=== PATIENT | female | born 1995 | race African-American/Black ===

== ENCOUNTER 2017-06-18 09:21 | Emergency (ER) | payer MEDICAID ==
[~2017-06-18] VITALS: Ht 162.6 cm; Wt 92.1 kg
[2017-06-18 09:25] VITALS: BP 132/82
[2017-06-18] MEDS ORDERED: NKM (09:28)
--- NOTE | 2017-06-18 09:43 | Emergency Room Report ---
History of Present Illness General Chief Complaint: Sore Throat Source: Patient, Friend Present Illness HPI 22-year-old female walks in with 2-3 days of left-sided sore throat, sinus congestion and rhinorrhea. Associated with dry cough. Nonsmoker no history of asthma. No history of fever or chills or body aches. Has been taking various [id number] medications including Motrin 400 mg without much improvement. Allergies: Coded Allergies: No Known Allergies (Unverified , 06/18/17) Patient History Past Medical History: none Past Surgical History: none Pertinent Family History: none Social History: Denies: smoking, alcohol use, drug use Last Menstrual Period: 05/26/17 Now: No Immunizations: UTD Reviewed Nursing Documentation: PMH: Agreed; PSxH: Agreed Nursing Documentation-PMH Past Medical History: No Stated History Review of Systems All Other Systems: negative except mentioned in HPI Physical Exam Vital Signs Date Time Temp Pulse Resp B/P (MAP) Pulse Ox O2 Delivery O2 Flow Rate FiO2 06/18/17 09:25 98.3 93 18 132/82 98 Room Air 98.2 Sp02 EP Interpretation: reviewed, normal General Appearance: normal inspection, well appearing, no apparent distress, alert, GCS 15, non-toxic Head: normocephalic, atraumatic Eyes: bilateral eye PERRL, bilateral eye EOMI ENT: normal ENT inspection, hearing grossly normal, normal pharynx, no angioedema, normal voice, TMs + canals normal, uvula midline, moist mucus membranes Neck: normal inspection, full range of motion, supple, thyroid normal, no meningismus, no bony tend Respiratory: normal inspection, lungs clear, normal breath sounds, no rhonchi, no respiratory distress, no retraction, no accessory muscle use, no wheezing, speaking full sentences Cardiovascular #1: regular rate, rhythm, no edema, no JVD, normal capillary refill Gastrointestinal: normal inspection, normal bowel sounds, non tender, soft, no mass, no peritonitis, non-distended, no guarding, no hernia, no pulsatile mass Genitourinary: no CVA tenderness Musculoskeletal: normal inspection, back normal, normal range of motion, no calf tenderness, pelvis stable, Antolin's Sign negative Neurologic: normal inspection, alert, oriented x3, responsive, hog slaughterer III-XII nml as tested, motor strength/tone normal, cerebellar normal, normal gait, speech normal Psychiatric: normal inspection, judgement/insight normal, mood/affect normal, no suicidal/homicidal ideation, no delusions Skin: normal inspection, normal color, no rash Lymphatic: normal inspection, no adenopathy Medical Decision Making Diagnostic Impression: Primary Impression: Sore throat ER Course VSS, afebrile With associated cough, rhinorrhea likely viral infection. No sign of bacterial infection in oropharynx, ears or lungs. Patient very well appearing, nonseptic appearing Advise Motrin as needed for likely viral pharyngitis, Flonase for nasal congestion and rhinorrhea. Close primary care follow-up ER course: Patient has remained stable during ED stay. Disposition: Patient is to be discharged to home. Prescriptions given are flonase, motrin Patient is instructed to follow up with their primary care doctor within 5 days. Strict return precautions discussed with patient such as fever, chills, worsening/severe pain, nausea, vomiting, which may indicate severe illness. Patient verbalizes understanding and agrees with plan. Please note that this Emergency Department Report was dictated using [employer] dna analyst technology software, occasionally this can lead to erroneous entry secondary to interpretation by the dictation equipment Last Vital Signs Date Time Temp Pulse Resp B/P (MAP) Pulse Ox O2 Delivery O2 Flow Rate FiO2 06/18/17 09:25 98.3 93 18 132/82 98 Room Air 98.3 Status: improved Disposition: HOME, SELF-CARE SHAJI VELAZQUEZ M.D. Jun 18, 2017 09:43
[2017-06-18] MEDS ORDERED: FLONASE ALLERG9.9 ML NS (09:44)
[2017-06-18] MEDS ORDERED: IBUPROFEN600 MG ORAL (09:44)
[2017-06-18 09:57] VITALS: BP 132/82
== END 2017-06-18 09:50 | disposition home or self-care (01) ==
LOC: EMR 09:38
DX: R07.0 Pain in throat (principal); R05 Cough
CPT/HCPCS: 99282

== ENCOUNTER 2017-07-13 14:34 | Emergency (ER) | payer MEDICAID ==
[~2017-07-13] VITALS: Ht 162.6 cm; Wt 96.2 kg
[~2017-07-13 14:34] MED LIST: FLONASE ALLERG9.9 ML NS; IBUPROFEN600 MG ORAL; NKM
[2017-07-13 15:03] VITALS: BP 125/81
[2017-07-13] MEDS ORDERED: ACYCLOVIR400 MG ORAL (15:19)
--- NOTE | 2017-07-13 15:20 | Emergency Room Report ---
History of Present Illness General Chief Complaint: General Complaint Source: Patient Present Illness HPI 22-year-old female patient presents to ER complaining of possible infection status post smoking a marijuana joint. Patient reports that she is concerned about having herpes on her lips after sharing it with a friend. Patient does not know the status of her friends health. Patient patient denies any lytic lesions or burning sensation of her left at this time. Patient denies acute complaints. Patient reports a history of cold sores in the past, has not had them for several years. Patient denies fever, chest pain, shortness of breath. Allergies: Coded Allergies: No Known Allergies (Unverified , 06/18/17) Patient History Past Medical History: see triage record Now: No Reviewed Nursing Documentation: PMH: Agreed; PSxH: Agreed Nursing Documentation-PMH Past Medical History: No Stated History Review of Systems All Other Systems: negative except mentioned in HPI Physical Exam Vital Signs Date Time Temp Pulse Resp B/P (MAP) Pulse Ox O2 Delivery O2 Flow Rate FiO2 07/13/17 14:53 98.4 99 17 125/81 97 Room Air 98.4 Sp02 EP Interpretation: reviewed, normal General Appearance: well appearing, no apparent distress, alert, GCS 15, non- toxic Head: normocephalic Eyes: bilateral eye normal inspection, bilateral eye PERRL ENT: hearing grossly normal, normal pharynx, no angioedema, normal voice, uvula midline, moist mucus membranes, other - no mouth sores, no vesicles, no lip lesions Neck: full range of motion Respiratory: lungs clear, normal breath sounds, no rhonchi, no respiratory distress, no accessory muscle use, no wheezing, speaking full sentences Cardiovascular #1: regular rate, rhythm, no edema Gastrointestinal: non tender, soft, no mass, non-distended, no guarding, no rebound Musculoskeletal: back normal, digits/nails normal, gait/station normal, normal range of motion, non-tender Neurologic: alert, oriented x3, responsive, motor strength/tone normal, sensory intact Psychiatric: mood/affect normal Skin: no rash Medical Decision Making PA Attestation Dr. Real is my supervising Physician whom patient management has been discussed with. Diagnostic Impression: Primary Impression: Encounter for generalized patient complaints ER Course Pt. presents to the ED c/o cold sore on mouth. Ddx considered but are not limited to atopic dermatitis, gingivostomatitis, pharyngitis. Vital signs: are WNL, pt. is afebrile ORDERS: None required at this time, the diagnosis is clinical. ER course: PE benign. No unroofed vesicles, no blisters. Explained to patient that herpes does not typically present within a few hours of exposure. Instructed patient that because she has had cold sores in the past she is at risk for having them again in the future, usually occur during times of increased stress or sickness. patient requesting medication. Provide Rx for acyclovir, instructed to patient not to take medication unless symptoms present. Informed patient that medication will only decrease length of symptoms, not cure disease. Instructed patient on [id number]-[id number] Abreva. patient rested comfortably, in no acute distress, nontoxic appearing, laughing and smiling. Don't smoke marijuana and drive. DISCHARGE: -Rx given for Acyclovir, 400mg TID x7 days. Patient may continue to use Abreva at home. At this time pt. is stable for d/c to home. Patient is resting comfortably in no acute distress, nontoxic appearing. Will provide printed patient care instructions, and any necessary prescriptions. Patient instructed to follow with primary care provider in 3-5 days for further treatment and referral as needed. Informed patient breakouts may occur during periods of stress or illness. Discuss future treatment options to prevent breakouts with patient; informed patient to discuss with primary care provider. Care plan and follow up instructions have been discussed with the patient prior to discharge. Patient reports understanding and agreement to treatment plan. Patient questions asked and answered. ER precautions given, patient instructed to return to ER immediately for any new or worsening of symptoms. - Please note that this Emergency Department Report was dictated using [employer] master technology software, occasionally this can lead to erroneous entry secondary to interpretation by the dictation equipment. Last Vital Signs Date Time Temp Pulse Resp B/P (MAP) Pulse Ox O2 Delivery O2 Flow Rate FiO2 07/13/17 14:53 98.4 99 17 125/81 97 Room Air 98.4 Disposition: HOME, SELF-CARE Condition: Stable Scripts Acyclovir* (ACYCLOVIR*) 400 Mg Tablet 400 MG ORAL THREE TIMES A DAY for 7 Days, #21 TAB Prov: Fuad Barr 07/13/17 Patient Instructions: Herpes Labialis Additional Instructions: Followup with primary care provider in 3 -5 days. Take medications as directed. only take if symptoms of cold sores began to present. [id number] Abreva for relief of symptoms. Do not smoke marijuana and drive. Patient questions asked and answered. ER precautions given, patient instructed to return to ER immediately for any new or worsening of symptoms. Fuad Barr July 13, 2017 15:20
[2017-07-13 15:25] VITALS: BP 125/81
== END 2017-07-13 15:25 | disposition home or self-care (01) ==
LOC: EMR 15:18
DX: Z04.8 Encounter for examination and observation for other specified reasons (principal); B00.1 Herpesviral vesicular dermatitis
CPT/HCPCS: 99283

== ENCOUNTER 2017-09-04 22:16 | Emergency (ER) | payer MEDICAID ==
[~2017-09-04] VITALS: Ht 165.1 cm; Wt 95.3 kg
[~2017-09-04 22:16] MED LIST changes: +ACYCLOVIR400 MG ORAL
[2017-09-04 22:30] VITALS: BP 141/80
[2017-09-04 23:26] LABS: APPEARANCE,URINE CLEAR; BILIRUBIN, URINE NEGATIVE (NEGATIVE); COLOR,URINE PALE YELLOW; GLUCOSE, URINE (UA) NEGATIVE (NEGATIVE); KETONES,URINE NEGATIVE (NEGATIVE); LEUKOCYTE ESTERASE ,URINE NEGATIVE (NEGATIVE); NITRITE,URINE NEGATIVE (NEGATIVE); PH,URINE 6 (4.5-8.0); PROTEIN,URINE NEGATIVE (NEGATIVE); UROBILINOGEN,URINE NORMAL MG/DL (0.0-1.0)
[2017-09-05 00:40] VITALS: BP 0/0
--- NOTE | 2017-09-05 23:17 | Emergency Room Report ---
History of Present Illness General Chief Complaint: Female Urogenital Problems Source: Patient Present Illness HPI Patient is a 22-year-old female who presented after increased vaginal bleeding. Patient reports having a prolonged menses. She denies being . Patient states that she been taking control pills. She reports having irregular periods in the past. Patient denies any dizziness or lightheadedness.She denies any severe pain. Allergies: Coded Allergies: No Known Allergies (Unverified , 06/18/17) Patient History Last Menstrual Period: 08/22/17 Now: No - denies sexual acitivty : 0 Reviewed Nursing Documentation: PMH: Agreed; PSxH: Agreed Nursing Documentation-PMH Past Medical History: No Stated History Review of Systems All Other Systems: negative except mentioned in HPI Physical Exam Vital Signs Date Time Temp Pulse Resp B/P (MAP) Pulse Ox O2 Delivery O2 Flow Rate FiO2 09/04/17 22:25 98.4 80 16 141/80 97 Room Air 98.4 General Appearance: well appearing, no apparent distress, alert, GCS 15 Head: normocephalic, atraumatic ENT: hearing grossly normal, normal voice Neck: full range of motion, supple Respiratory: lungs clear, normal breath sounds, no respiratory distress, speaking full sentences Gastrointestinal: normal inspection, non tender Musculoskeletal: normal inspection, back normal, digits/nails normal, gait/ station normal, no calf tenderness Neurologic: normal inspection, alert, oriented x3, normal gait Psychiatric: normal inspection, mood/affect normal Skin: normal inspection, no rash Medical Decision Making Diagnostic Impression: Primary Impression: Metrorrhagia ER Course Patient presented for vaginal bleeding. Differential diagnosis included wasn't limited to anemia, threatened , coagulopathy among others. The patient appears to have mild/moderate bleeding per history. The patient does not appear to require any labs or imaging studies at this time. 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 Urine test was negative.The patient is advised to follow up with primary care doctor in 1-2 days. Patient is advised to return if any worsening condition or if any changes in status that are concerning. This report is dictated with [employer] imaging assistant software which may occasionally lead to discrepancies related to use of this software. Last Vital Signs Date Time Temp Pulse Resp B/P (MAP) Pulse Ox O2 Delivery O2 Flow Rate FiO2 09/05/17 00:40 0/0 7/3/18 22:30 98.4 80 16 97 Room Air 98.4 Status: improved Disposition: HOME, SELF-CARE Condition: Stable Chad Park MD Sep 05, 2017 23:17
== END 2017-09-05 00:40 | disposition home or self-care (01) ==
LOC: EMR 22:47
DX: N92.1 Excessive and frequent menstruation with irregular cycle (principal)
CPT/HCPCS: 81003; 81025; 99282

== ENCOUNTER 2018-09-01 12:01 | Emergency (ER) | payer MEDICAID ==
[~2018-09-01] VITALS: Ht 165.1 cm; Wt 91.6 kg
[2018-09-01] MEDS ORDERED: LESSINA1 EACH PO (12:19)
[2018-09-01 12:27] VITALS: BP 136/86
--- NOTE | 2018-09-01 12:28 | NUR ---
ED Nurse Note: pt walked in to ED due to having period for 2 weeks. pt on control pills and skipped dose for 3 days before period starts. per pt, just small amount. denies any light headache or dizziness. AAO x4. respirations even and non-labored noted. will wait for the further order.
--- NOTE | 2018-09-01 12:36 | Emergency Room Report ---
History of Present Illness General Chief Complaint: Vaginal Source: Patient Present Illness HPI 23-year-old female with history of chronic vaginal bleeding here requesting of worsening vaginal bleeding at this month and requesting an abdominal ultrasound. Patient was previously here a year ago and was diagnosed with metrorrhagia and was told to follow-up with the primary care physician and have female hormones tested and have a pelvic ultrasound done. Patient reports that she never followed up with a primary care. She reports that every other month she has heavy bleeding with clotting. Complains of minimal fatigue and tiredness. Denies dizziness, headache, syncope, chest pain, shortness of breath , palpitation, abdominal pain, nausea vomiting. Patient reports that she has a family history of uterine fibroids. Denies painful urination, frequency. Patient is currently on oral contraceptives and currently on her menses. Allergies: Coded Allergies: No Known Allergies (Unverified , 06/18/17) Patient History Past Medical History: see triage record Past Surgical History: unable to obtain Pertinent Family History: none Last Menstrual Period: on period Now: No Immunizations: UTD Reviewed Nursing Documentation: PMH: Agreed; PSxH: Agreed Nursing Documentation-PMH Past Medical History: No Stated History Review of Systems All Other Systems: negative except mentioned in HPI Physical Exam Vital Signs Date Time Temp Pulse Resp B/P (MAP) Pulse Ox O2 Delivery O2 Flow Rate FiO2 09/01/18 12:10 98.2 93 17 136/86 (103) 98 Room Air Sp02 EP Interpretation: reviewed, normal General Appearance: normal inspection, well appearing, no apparent distress, alert, GCS 15 Head: normocephalic, atraumatic Eyes: bilateral eye normal inspection, bilateral eye PERRL ENT: normal ENT inspection, hearing grossly normal, normal pharynx Neck: normal inspection, full range of motion, supple Respiratory: normal inspection, chest non-tender, lungs clear Cardiovascular #1: normal inspection, normal peripheral pulses, regular rate, rhythm, no edema, normal capillary refill Gastrointestinal: normal inspection, non tender, soft Genitourinary: no CVA tenderness Musculoskeletal: normal inspection, back normal Neurologic: normal inspection, alert, oriented x3 Psychiatric: normal inspection, judgement/insight normal, memory normal Skin: no rash Lymphatic: normal inspection, no adenopathy Medical Decision Making PA Attestation All my diagnosis and treatment plans were reviewed ad discussed with my supervising physician Dr. Crum Diagnostic Impression: Primary Impression: Metrorrhagia ER Course 23-year-old female with history of chronic vaginal bleeding here requesting of worsening vaginal bleeding at this month and requesting an abdominal ultrasound. Patient was previously here a year ago and was diagnosed with menorrhagia and was told to follow-up with the primary care physician and have female hormones tested and have a pelvic ultrasound done. Patient reports that she never followed up with a primary care. She reports that every other month she has heavy bleeding with clotting. Complains of minimal fatigue and tiredness. Denies dizziness, headache, syncope, chest pain, shortness of breath , palpitation, abdominal pain, nausea vomiting. Patient reports that she has a family history of uterine fibroids. Denies painful urination, frequency. Patient is currently on oral contraceptives and currently on her menses. Ddx considered but are not limited to: UTI, metrorrhagia, uterine fibroids, ovarian cysts, iron deficiency anemia Vital signs: are WNL, pt. is afebrile H&PE are most consistent with: Metrorrhagia ORDERS: UA, urine preg, CBC, ibuprofen ED INTERVENTIONS: None required at this time. DISCHARGE: At this time pt. is stable for d/c to home. Will provide printed patient care instructions, and any necessary prescriptions. Care plan and follow up instructions have been discussed with the patient prior to discharge. Follow-up with the primary care provider for referral to [facility] pelvic ultrasound to be requested by your primary care as this is a chronic condition and also to be tested for female hormones to rule out possibility of PCOS versus uterine fibroids versus other etiologies. Last Vital Signs Date Time Temp Pulse Resp B/P (MAP) Pulse Ox O2 Delivery O2 Flow Rate FiO2 09/01/18 12:27 98.2 93 17 136/86 98 Room Air Disposition: HOME, SELF-CARE Condition: Stable Scripts Ibuprofen* (MOTRIN*) 600 Mg Tablet 600 MG ORAL Q8H PRN for For Pain, #30 TAB 0 Refills Prov: Walker Payan 09/01/18 Patient Instructions: Metrorrhagia, [id number] Additional Instructions: Follow-up with a primary care provider for referral to [facility] as well as pelvic ultrasound also female hormones to be tested to rule out other etiologies of abnormal uterine bleeding. Walker Payan Sep 01, 2018 12:36
[2018-09-01 12:46] LABS: BASOPHILS % (AUTO) 0.7 % (0.0-2.0); EOSINOPHILS % (AUTO) 0.3 % (0.0-3.0); HEMATOCRIT 41.2 % (37.0-47.0); HEMOGLOBIN 13.5 G/DL (12.0-16.0); MEAN CORPUSCULAR VOLUME 78 FL (80-99); MONOCYTES % (AUTO) 8.2 % (1.0-10.0); NEUTROPHILS % (AUTO) 55.8 % (45.0-75.0); PLATELET COUNT 473 K/UL (150-450); RED BLOOD COUNT 5.31 M/UL (4.20-5.40); RED CELL DISTRIBUTION WIDTH 14.4 % (11.6-14.8); WHITE BLOOD COUNT 4.7 K/UL (4.8-10.8)
[2018-09-01 12:47] LABS: APPEARANCE,URINE SLIGHTLY CLOUDY; BILIRUBIN, URINE NEGATIVE (NEGATIVE); GLUCOSE, URINE (UA) NEGATIVE (NEGATIVE); KETONES,URINE 1+ (NEGATIVE); LEUKOCYTE ESTERASE ,URINE 1+ (NEGATIVE); NITRITE,URINE NEGATIVE (NEGATIVE); PH,URINE 5 (4.5-8.0); PROTEIN,URINE 2+ (NEGATIVE); UROBILINOGEN,URINE 1 MG/DL (0.0-1.0)
[2018-09-01] MEDS ORDERED: IBUPROFEN600 MG ORAL (12:54)
[2018-09-01 12:56] LABS: COLOR,URINE YELLOW
[2018-09-01 13:00] VITALS: BP 127/76
--- NOTE | 2018-09-01 13:00 | NUR ---
ED Nurse Note: pt cleared to be d/c per ERMD, pt discharge and aftercare instruction provided w/ prescription, pt education done via discussion and handout, pt advised to follow up with pcp or return to ed if changes in condition, pt verbalized understanding and agrees with plan, id band removed, pt vss, ambulatory w/ steady gait, left w/ all belongings.
== END 2018-09-01 13:00 | disposition home or self-care (01) ==
LOC: EMR 12:31
DX: N92.1 Excessive and frequent menstruation with irregular cycle (principal)
CPT/HCPCS: 36415; 81001; 81025; 85025; 99283